=== PATIENT | female | born 1990 | race Caucasian/White ===

== ENCOUNTER 2016-09-15 21:53 | Emergency (ER) | payer OTHER ==
[2016-09-15 22:04] VITALS: BP 127/71
[2016-09-15] MEDS ORDERED: Lidocaine 2% W/EPI 1:100,000* 20 ML MDV INJ ONE (22:14)
--- NOTE | 2016-09-15 22:18 | UC ---
Head Injury HPI - HPI Summary HPI Summary: The patient comes in today for: 1. Head injury and Left eyebrow laceration Onset: 1.5 hours ago. Palliative/provocative: wound manipulation makes it worse. Quality: Stinging. Region: Left eye brow. Severity: 0/10 Time: Constant. Associated symptoms: Event: She was at [employer] when she ran into another player. And at the impact the other person's helmit hit her head. No LOC. No nausea. No photophobia. She remembers everything. No headache. Last tetanus: within the last 10 years. * - History Of Current Complaint Chief Complaint: UCLaceration Stated Complaint: LAC ABOVE EYE Time Seen by Provider: 09/15/16 22:00 Hx Obtained From: Patient, Family/Professional Advisor Hx Last Menstrual Period: iud ?: No - Allergies/Home Medications Allergies/Adverse Reactions: Allergies Allergy/AdvReac Type Severity Reaction Status Date / Time No Known Allergies Allergy Verified 09/15/16 22:04 Home Medications: Home Medications NK [No Home Medications Reported] 09/15/16 [History Confirmed 09/15/16] PMH/Surg Hx/FS Hx/Imm Hx Previously Healthy: Yes Other Endocrine History: No DM, thyroid disease. Other Cardiovascular History: No heart or HTN. Other Respiratory History: No asthma or PE. Other GI/ History: No GERD or ulcer, kidney failure. Other Neurological History: No seizures or headaches. Other Psychological History: No anxiety or depression Other Cancer History: No cancers. Other History Of: Negative For: HIV, Hepatitis B, Hepatitis C, Anticoagulant Therapy - Surgical History Surgical History: None - Family History Known Family History: Positive: Hypertension Negative: Cardiac Disease - Social History Occupation: Employed Full-time Alcohol Use: Occasionally Substance Use Type: None Smoking Status (MU): Never Smoked Tobacco Review of Systems Constitutional: Negative Skin: Negative Eyes: Negative ENT: Negative Respiratory: Negative Cardiovascular: Negative Gastrointestinal: Negative Genitourinary: Negative Motor: Negative All Other Systems Reviewed And Are Negative: Yes Physical Exam Triage Information Reviewed: Yes Appearance: Well-Appearing, No Pain Distress, Well-Nourished Vital Signs: Initial Vital Signs Temp 97.7 F 09/15/16 22:00 Pulse 89 09/15/16 22:00 Resp 18 09/15/16 22:00 BP 127/71 09/15/16 22:00 Pulse Ox 100 09/15/16 22:00 Vital Signs Reviewed: Yes Eyes: Positive: Conjunctiva Clear, Other: - She has a laceration in the left eyebrow.. Negative: Discharge ENT: Positive: Hearing grossly normal. Negative: Pharyngeal erythema, Nasal congestion, Nasal drainage, TM bulging, TM dull, TM red, Tonsillar swelling, Tonsillar exudate Dental: Negative: Gross Decay/Caries @, Dental Fracture @ Neck: Positive: Supple, Nontender, No Lymphadenopathy. Negative: Nuchal Rigidity Respiratory: Positive: Chest non-tender, Lungs clear, No respiratory distress, No accessory muscle use. Negative: Crackles, Rhonchi Cardiovascular: Positive: RRR, No Murmur Abdomen Description: Positive: Nontender, No Organomegaly, Soft. Negative: Distended, Guarding Musculoskeletal: Positive: Strength Intact, ROM Intact, No Edema Neurological: Positive: Alert, Muscle Tone Normal, Other: - Screen: negative Psychological: Positive: Age Appropriate Behavior, Consolable Skin: Negative: rashes, breakdown Procedures - Laceration/Wound Repair 1 Location: head Description: Linear Anesthesia: 2.0%, Epi Length, Depth and Shape: Length: 1.5 cm. Depth: 2 mm. Width: 2 mm. Shape: curving line. Betadine Prep?: Yes Laceration/Wound Explored: clean Closure: Single Layer Suture Type: Prolene - Four 6-0 nylon Head Injury Course/Dx - Course Course Of Treatment: Laceration repair, left eyebrow - Differential Dx/Diagnosis Provider Diagnoses: Laceration left eye brow Discharge - Discharge Plan Condition: Stable Disposition: HOME Patient Education Materials: Laceration (ED), Care For Your Stitches (ED) Additional Instructions: Please see your primary care provider, [facility] or us in about 7 days to remove the sutures. Inspect the area daily for: 1. Increasing redness 2. Increasing swelling 3. Increasing tenderness 4. Dischage. Gently clean the area with a Q-tip and hydrogen peroxide.
== END 2016-09-15 22:50 | disposition home or self-care (01) ==
LOC: UCEAST 21:53
DX: S01.112A Laceration without foreign body of left eyelid and periocular area, initial encounter (principal); W51.XXXA Accidental striking against or bumped into by another person, initial encounter; Y93.51 Activity, roller skating (inline) and skateboarding
CPT/HCPCS: 12011; 99211; G0463

== ENCOUNTER 2016-09-23 14:04 | Emergency (ER) | payer OTHER ==
[2016-09-23 14:10] VITALS: BP 99/66
--- NOTE | 2016-09-23 14:24 | UC ---
Skin Complaint HPI - HPI Summary HPI Summary: here to have 4 stitches removed from left eye brow---laceration occurred while playing [employer]---no problems with healing - History of Current Complaint Chief Complaint: UCSkin Time Seen by Provider: 09/23/16 14:19 Stated Complaint: STITCHES REMOVAL Hx Obtained From: Patient Hx Last Menstrual Period: iud ?: No Onset/Duration: Sudden Onset, Resolved Skin Exposure Onset/Duration: Days Ago - 7 Timing: Constant Onset Severity: Mild Current Severity: None Pain Intensity: 0 Pain Scale Used: 0-10 Numeric Aggravating: Nothing Alleviating: Nothing Associated Signs & Symptoms: Positive: Negative Related History: Trauma - Allergy/Home Medications Allergies/Adverse Reactions: Allergies Allergy/AdvReac Type Severity Reaction Status Date / Time No Known Allergies Allergy Verified 09/23/16 14:10 Review of Systems Constitutional: Negative Skin: Other - haling wound left eye brow Eyes: Negative ENT: Negative Respiratory: Negative Cardiovascular: Negative Gastrointestinal: Negative Genitourinary: Negative Motor: Negative Neurovascular: Negative Musculoskeletal: Negative Neurological: Negative Psychological: Negative All Other Systems Reviewed And Are Negative: Yes PMH/Surg Hx/FS Hx/Imm Hx Previously Healthy: Yes Other History Of: Negative For: HIV, Hepatitis B, Hepatitis C, Anticoagulant Therapy - Surgical History Surgical History: None - Family History Known Family History: Positive: Hypertension Negative: Cardiac Disease - Social History Occupation: Student Lives: With Family Alcohol Use: Occasionally Substance Use Type: None Smoking Status (MU): Never Smoked Tobacco Physical Exam Triage Information Reviewed: Yes Appearance: Well-Appearing, No Pain Distress, Well-Nourished Vital Signs: Initial Vital Signs Temp 98.7 F 09/23/16 14:06 Pulse 79 09/23/16 14:06 Resp 20 09/23/16 14:06 BP 99/66 09/23/16 14:06 Pulse Ox 98 09/23/16 14:06 Vital Signs Reviewed: Yes Eye Exam: Normal Eyes: Positive: Conjunctiva Clear ENT Exam: Normal ENT: Positive: Normal ENT inspection, Hearing grossly normal. Negative: Nasal congestion, Nasal drainage, Trismus, Muffled/hoarse voice Dental Exam: Normal Neck exam: Normal Neck: Positive: Supple, Nontender Respiratory Exam: Normal Respiratory: Positive: Chest non-tender, Lungs clear, Normal breath sounds, No respiratory distress, No accessory muscle use Cardiovascular Exam: Normal Cardiovascular: Positive: RRR, No Murmur, Pulses Normal, Brisk Capillary Refill Musculoskeletal Exam: Normal Musculoskeletal: Positive: Strength Intact, ROM Intact, No Edema Neurological Exam: Normal Neurological: Positive: Alert, Muscle Tone Normal Psychological Exam: Normal Skin Exam: Other Skin: Positive: Other - healing left eye brow Re-Evaluation - Re-Evaluation First Eval Change: Improved - tolerated well-well healed wound Course/Dx - Course Course Of Treatment: sun screen, recheck prn, follow with pcp prn - Differential Diagnoses - Skin Complaint Differential Diagnoses: Cellulitis, Other - suture removal healing wound - Diagnoses Provider Diagnoses: Healing wound , suture removal Discharge - Discharge Plan Condition: Stable Disposition: HOME Patient Education Materials: Stitches Removal (ED), Facial Laceration (ED) Referrals: [facility] [Outside] - If Needed No Primary Care Phys,NOPCP [Primary Care Provider] -
== END 2016-09-23 14:28 | disposition home or self-care (01) ==
LOC: UCEAST 14:04
DX: S01.112D Laceration without foreign body of left eyelid and periocular area, subsequent encounter (principal); X58.XXXD Exposure to other specified factors, subsequent encounter; Y92.9 Unspecified place or not applicable
CPT/HCPCS: 99211; G0463